=== PATIENT | male | born 1950 | race Caucasian/White ===

== ENCOUNTER → 2016-08-26 | Outpatient (CLI) | payer MEDICARE, BC ==
[~2016-08-26] MED LIST: AMLO2.5T PO; CARV3.122 PO; FINA1TAB16 PO; FLUO10CA13 PO; LISI2.5T PO; POTA8CAP PO; SIMV5TAB PO; TAMS-11 PO
== END | disposition home or self-care (01) ==
LOC: CVU 09:40
PROVIDERS: ATTEND Surgery
DX: I65.23 Occlusion and stenosis of bilateral carotid arteries (principal); E78.5 Hyperlipidemia, unspecified; I10 Essential (primary) hypertension
CPT/HCPCS: 93880

== ENCOUNTER → 2017-04-24 | Outpatient (CLI) | payer MEDICARE, BC | END | disposition home or self-care (01) | LOC: CVU 12:26 | PROVIDERS: ATTEND Surgery | DX: I65.23 Occlusion and stenosis of bilateral carotid arteries (principal); E78.5 Hyperlipidemia, unspecified; I10 Essential (primary) hypertension | CPT/HCPCS: 93880 ==

== ENCOUNTER 2019-10-09 08:19 | Outpatient (CLI) | payer MEDICARE, BC ==
[~2019-10-09 08:19] MED LIST changes: -AMLO2.5T PO; +AMLO2.5T5 PO; -POTA8CAP PO; +POTA8CAP20 PO
== END 2019-10-09 23:59 | disposition home or self-care (01) ==
LOC: CVU 08:19
PROVIDERS: ATTEND Surgery
DX: I65.23 Occlusion and stenosis of bilateral carotid arteries (principal); I10 Essential (primary) hypertension; E78.5 Hyperlipidemia, unspecified
CPT/HCPCS: 93880

== ENCOUNTER → 2020-04-16 | Outpatient (CLI) | payer MEDICARE, BC | END | disposition home or self-care (01) | LOC: CVU 08:49 | PROVIDERS: ATTEND Surgery | DX: I65.23 Occlusion and stenosis of bilateral carotid arteries (principal) | CPT/HCPCS: 93880 ==

== ENCOUNTER 2020-06-04 13:37 | Emergency (ER) | payer MEDICARE, OTHER ==
[~2020-06-04] VITALS: Ht 172.7 cm; Wt 126.0 kg
--- NOTE | 2020-06-04 14:05 | NUR ---
PT IS A 69M COMPLAINING OF GENERALIZED FATIGUE AND LOW O2 WHICH WAS TESTED AT HOME WITH HIS WIFES PULSE OXYMETER. HE WAS 93% THIS MORNING AND 91% THIS AFTERNOON. HE SPOKE WITH HIS PCP WHO ADVISED HIM TO COME IN FOR EVALUATION. HE ALSO DESCRIBES A "FUZZINESS" IN HIS CHEST WHICH HE DENIES IS A PAIN, PRESSURE, OR DISCOMFORT WHICH STARTED YESTERDAY. HE RANGES FROM UPPER 80'S TO LOW 90% IN THE ROOM DURING MY ASSESSMENT. HE DENIES SOB. PROVIDER AT BEDSIDE FOR EVALUATION. CONTINUOUS SP02, CYCLING VITALS, CALL LIGHT WITHIN REACH. NO ADDITIONAL NEEDS AT THIS TIME.
[2020-06-04 15:24] VITALS: BP 176/82
--- NOTE | 2020-06-04 15:26 | NUR ---
Patient/Caregiver given discharge instructions and they have confirmed that they understand the instructions. Patient ambulatory with steady gait.
== END 2020-06-04 15:27 | disposition home or self-care (01) ==
LOC: ED 14:37
DX: J02.9 Acute pharyngitis, unspecified (principal); Z20.822 Contact with and (suspected) exposure to COVID-19; M79.10 Myalgia, unspecified site; R09.81 Nasal congestion; R09.89 Other specified symptoms and signs involving the circulatory and respiratory systems; I10 Essential (primary) hypertension; R53.83 Other fatigue
CPT/HCPCS: 87635; 93005; 99284

== ENCOUNTER 2021-01-21 11:00 | Outpatient (CLI) | payer MEDICARE, OTHER ==
[~2021-01-21 11:00] MED LIST changes: -LISI2.5T PO; +LISI2.5T12 PO
== END 2021-01-21 23:59 | disposition home or self-care (01) ==
LOC: CVU 11:00
PROVIDERS: ATTEND Surgery
DX: I65.23 Occlusion and stenosis of bilateral carotid arteries (principal)
CPT/HCPCS: 93880